=== PATIENT | female | born 1970 ===

== ENCOUNTER 2023-09-23 11:51 | Emergency (ER) | payer OTHER, SELFPAY ==
[2023-09-23 12:31] VITALS: BP 167/104; PULSE 73; RESP 16; TEMP 37.1; O2SAT 100; BMI 24.0
--- NOTE | 2023-09-23 12:31 | ED.SKABFB ---
HPI - Skin/Abscess/Foreign Bdy General Chief complaint: Skin/Abscess/Foreign Body Stated complaint: Bilateral eye swelling Time Seen by Provider: 09/23/23 14:29 Source: patient Mode of arrival: ambulatory Limitations: no limitations History of Present Illness ED Provider: Roly MACHADO Related Data Previous Rx's ?Medication ?Instructions ?Recorded diphenhydramine HCl 25 mg capsule 25 mg PO TID PRN allergic reaction 09/23/23 (Benadryl) #20 caps epinephrine 0.3 mg/0.3 mL 0.3 mg (0.3 mL) IM Q4H PRN 09/23/23 injection, auto-injector (EpiPen anaphylaxis #2 ea 2-Kenton) mupirocin 2 % topical ointment 1 appl topical BID #15 grams 09/23/23 prednisone 50 mg tablet 50 mg PO DAILY 5 days #5 tabs 09/23/23 Allergies Allergy/AdvReac Type Severity Reaction Status Date / Time No Known Allergies Allergy Verified 09/23/23 12:33 Review of Systems Review of Systems: Yes all other systems are reviewed and are negative [facility] Past Medical History Attestation statement: The following information was validated with the patient. Source: old records reviewed and nursing notes reviewed Social History Social History Advance Directives: No Advance Directives Information Provided: Yes Do you have a plan to hurt others: No Plan Physical Exam Vital Signs: Vital Signs: Last Vital Signs Temp 98.8 F 09/23/23 12:31 Pulse 73 09/23/23 12:31 Resp 16 09/23/23 12:31 BP 167/104 H 09/23/23 12:31 Pulse Ox 100 09/23/23 12:31 O2 Del Method Room Air 09/23/23 12:31 BMI result Body Mass Index 24.0 vss Appearance: Alert.? Oriented X3.? No acute distress.? Head: Normocephalic, atraumatic, no step-offs or deformities Eyes: Pupils equal, round and reactive to light.? ENT: Pharynx normal uvula midline, no exudate or abscess .? Mild swelling overlying b/l upper eyelids. and mild swelling over upper lip w/ rash small pustules on erythematous base. Speaking in full sentences controlling secretions well. Neck: Normal inspection.? Neck supple.? CVS: Normal heart rate and rhythm.? Pulses normal.? Respiratory: No respiratory distress.? Breath sounds normal.? Abdomen: Soft and nontender.? Skin: Skin warm and dry.? Normal skin color.? Normal skin turgor.? Extremities: No lower extremity edema.? No calf ttp. 5/5 strength to bilateral upper and lower extremities Neuro: Oriented X 3.? No motor deficit.? No sensory deficit. CN 2-12 intact Course Course Course Narrative: This is a Rapid Medical Examination (RME) performed by Robby Prakash PA-C in triage. Full HPI, ROS, assessment and treatment plan per primary provider in the Main ED. 52 yo female here for eval of facial swelling x3 days. began as tingling to her lips and noticed dryness to her outer lips. has been applying vaseline to the area however reports burning/painful sensation. Woke up yesterday with swelling around her eyes. took benadryl with minimal relief. reports previous eye swelling years ago. was given a pill which helped. has had no issues since. no known allergies. admits to trying a new neutragena face wash on friday (1 day prior to onset of symptoms). no new meds/ antibiotics. no tick or insect bites. dry skin noted to external lips. noted swelling to face/ periorbital region. No sloughing rash. Spares palms/soles/web spaces. No noted target lesions. Airway patent. Posterior oropharynx WNL. Tongue WNL. lungs cta. Plan: labs Reevaluation(s) Reevaluation #1: Given decadron. Patient feels well. Swelling improved. Appears well. VSS. Educated patient on diagnosis and treatment plan, answered all question, patient verbalizes understanding. At this time patient will be discharged home, advised to return with new or worsening symptoms. Educated on worrisome signs and symptoms and when to return. At this time I feel comfortable discharge home. Time: 15:27 Medications Administered Discontinued Medications Generic Name Dose Route Start Last Admin Trade Name Freq PRN Reason Stop Dose Admin Dexamethasone Sodium Phosphate 10 mg 09/23/23 14:36 09/23/23 15:00 Dexamethasone Sod Phosphate 10 Mg/Ml Vial IVPUSH 09/23/23 14:37 10 mg ONCE ONE Administration Medical Decision Making Medical Decision Making [facility] Narrative: 1524 52 yo f presents w/ concerns of allergic reaction due to new facial cream / wash PE Pharynx normal uvula midline, no exudate or abscess .? Mild swelling overlying b/l upper eyelids. and mild swelling over upper lip w/ rash small pustules on erythematous base. Speaking in full sentences controlling secretions well. Hx and pe concerning for allergic reaction vs allergic dermatitis vs contact dermatitis. NO signs of threat to airway, anaphylaxis. Unlikely orbital cellulitis. Unlikely ARDS , facial cellulitis. Plan-decadron patient took benadryl at home. No need for epi. Differential Diagnosis Differential Diagnoses: The differential diagnosis associated with the presentation includes Hx and pe concerning for allergic reaction vs allergic dermatitis vs contact dermatitis. NO signs of threat to airway, anaphylaxis. Unlikely orbital cellulitis. Unlikely ARDS , facial cellulitis. Admission/Observation Consideration of admission/observation: Escalation of care including admission/observation considered Lab Data MDM Lab Attestation statement: I reviewed the patient's lab results. 09/23/23 12:44 09/23/23 12:44 Labs: Lab Results 09/23/23 Range/Units 12:44 WBC 7.1 (4.8-10.8) X10*3/uL RBC 3.90 L (4.20-5.50) X10*6/uL Hgb 12.5 (12.0-16.0) g/dl Hct 37.0 (37.0-47.0) % MCV 94.9 (80.0-98.0) fL MCH 32.1 (27.0-33.0) pg MCHC 33.8 (31.0-35.0) g/dl RDW 13.0 (11.0-16.0) % Plt Count 182 (160-400) X10*3/uL MPV 10.2 (9.4-12.3) fL Immature Gran % (Auto) 0.3 (0.0-0.4) % Neut % (Auto) 57.3 (45-73) % Lymph % (Auto) 30.6 (20-40) % Wheeler % (Auto) 6.8 (2-11) % Eos % (Auto) 4.4 H (0-4) % Baso % (Auto) 0.6 (0-2) % Lymph # (Auto) 2.2 (1.2-4.9) X10*3/uL Wheeler # (Auto) 0.5 (0.1-1.2) X10*3/uL Eos # (Auto) 0.3 (0.0-0.4) X10*3/uL Baso # (Auto) 0.0 (0.0-0.2) X10*3/uL Abs Immat Gran (auto) 0.02 (0.00-0.03) X10*3/uL Absolute Neuts (auto) 4.1 (2.0-8.3) x10*3/uL Absolute Nucleated RBC 0.000 (0.0-0.012) X10*3/uL Nucleated RBC % (auto) 0.0 (0.0-0.2) /100WBC Sodium 141 (135-145) mmol/L Potassium 4.0 (3.3-5.1) mmol/L Chloride 107 (96-108) mmol/L Carbon Dioxide 27 (22-29) mmol/L Anion Gap 11 L (12-20) BUN 12 (9-16) mg/dL Creatinine 0.83 (0.5-1.4) mg/dL Estim Creat Clear Calc 66.9 Estimated GFR > 60 Random Glucose 84 (60-115) mg/dL Calcium 9.6 (8.4-10.2) mg/dL Magnesium 1.9 (1.6-2.6) mg/dL Total Bilirubin 0.9 (0.0-1.0) mg/dL AST 17 (5-31) U/L ALT 8 (0-31) U/L Alkaline Phosphatase 68 (39-117) U/L Total Protein 7.4 (6.5-8.0) g/dL Albumin 4.4 (3.5-5.0) g/dL Lipase 15 (8-78) U/L Prescription Management I considered prescription management with: Other (prednisone, epi, benadryl, mupirocin ) Chronic Conditions denies Discharge Plan Discharge Clinical Impression: Allergic reaction, Facial swelling, Rash Patient Disposition: Home, Self-Care Instructions: Acute Rash (ED), General Allergic Reaction (ED), Cold Compress or Soak (ED), Allergy Testing (ED) Additional Instructions: Take your medications as prescribed. If you were prescribed antibiotics today, it is important that you take your medication to their entirety, do not skip any doses, do not finish them early. Follow-up with your primary care provider this week. Return to the emergency department with new or worsening symptoms. Such as fevers, chills, chest pain, shortness of breath, nausea, vomiting, dizziness, headache, vision changes, lethargy In case of emergency call 911 How to use an EpiPen: ? Place the orange tip against the middle of the outer thigh. ? Swing and push the auto-injector firmly into the thigh until it ?clicks? ? Hold firmly in place for three seconds?count slowly, ?1, 2, 3? An EpiPen has been sent to your pharmacy this should only be used in severe emergency such as inability to breathe trouble speaking, shortness breath or any signs of anaphylaxis as discussed. If he use an EpiPen it is crucial you come in to an emergency department to be evaluated as you can have a rebound effect. Please follow-up with an allergy doctor. Prescriptions: New diphenhydramine HCl [Benadryl] 25 mg capsule 25 mg PO TID PRN (Reason: allergic reaction) Qty: 20 0RF prednisone 50 mg tablet 50 mg PO DAILY 5 Days Qty: 5 0RF epinephrine [EpiPen 2-Kenton] 0.3 mg/0.3 mL auto-injector 0.3 mg IM Q4H PRN (Reason: anaphylaxis) Qty: 2 0RF mupirocin 2 % ointment 1 appl topical BID Qty: 15 0RF Referrals: [facility] [Outside] - 1 week Bernadine Sierra MD [Primary Care Provider] - 1 week Stand Alone Forms: Work/School Release Print Language: Japanese
[2023-09-23 12:50] LABS: Basophils Percent Auto 0.6 % (0-2); Eosinophils Absolute Auto 0.3 X10*3/uL (0.0-0.4); Eosinophils Percent Auto 4.4 % (0-4); Hemoglobin 12.5 g/dl (12.0-16.0); Imm Gran Abs Auto 0.02 X10*3/uL (0.00-0.03); Imm Gran Pct Auto 0.3 % (0.0-0.4); Lymphocytes Absolute Auto 2.2 X10*3/uL (1.2-4.9); Lymphocytes Percent Auto 30.6 % (20-40); MANUAL DIFF FLAG NO; Mean Corpuscular HGB Conc 33.8 g/dl (31.0-35.0); Mean Corpuscular Hemoglobin 32.1 pg (27.0-33.0); Mean Corpuscular Volume 94.9 fL (80.0-98.0); Mean Platelet Volume 10.2 fL (9.4-12.3); Monocytes Absolute Auto 0.5 X10*3/uL (0.1-1.2); Monocytes Percent Auto 6.8 % (2-11); Neutrophils Absolute Auto 4.1 x10*3/uL (2.0-8.3); Neutrophils Percent Auto 57.3 % (45-73); Platelet Count 182 X10*3/uL (160-400); White Blood Count 7.1 X10*3/uL (4.8-10.8)
[2023-09-23 13:08] LABS: Alanine Aminotransferase 8 U/L (0-31); Albumin Level 4.4 g/dL (3.5-5.0); Alkaline Phosphatase 68 U/L (39-117); Anion Gap 11 (12-20); Aspartate Amino Transferase 17 U/L (5-31); Bilirubin Total 0.9 mg/dL (0.0-1.0); Blood Urea Nitrogen 12 mg/dL (9-16); Calcium 9.6 mg/dL (8.4-10.2); Carbon Dioxide 27 mmol/L (22-29); Chloride 107 mmol/L (96-108); Creatinine Clr Calc Pharmacy 66.9; Estimated Glomerular Filt Rate > 60; Glucose Random 84 mg/dL (60-115); Lipase 15 U/L (8-78); Magnesium 1.9 mg/dL (1.6-2.6); Sodium 141 mmol/L (135-145); Total Protein 7.4 g/dL (6.5-8.0)
[2023-09-23] MEDS: dexAMETHasone sod phosphate 10 MG/ML VIAL IVPUSH (15:00)
[2023-09-23 16:21] VITALS: BP 171/99; PULSE 63; RESP 14; TEMP 36.8; O2SAT 98
== END 2023-09-23 16:31 | disposition home or self-care (01) ==
PROVIDERS: Physician Assistant Medical; Emergency Provider Emergency Medicine; PCP Internal Medicine
DX: T78.49XA Other allergy, initial encounter (principal); R21 Rash and other nonspecific skin eruption; R22.0 Localized swelling, mass and lump, head; X58.XXXA Exposure to other specified factors, initial encounter
CPT/HCPCS: 36415; 80053; 83690; 83735; 85025; 99282; 99283; J1100